=== PATIENT | male | born 1975 | race Caucasian/White ===

== ENCOUNTER 2023-04-07 00:21 | Emergency (ER) | payer MEDICAID ==
[~2023-04-07] VITALS: Ht 172.7 cm; Wt 70.5 kg
[2023-04-07] MEDS ORDERED: LIDOcaine 1% 30ml preserv. free vial SQ STA (01:13)
[2023-04-07] MEDS ORDERED: CEPH-585 PO (02:11)
[2023-04-07 03:00] VITALS: BP 130/78; PULSE 95; RESP 18; TEMP 98.2; O2SAT 98
== END 2023-04-07 03:07 ==
LOC: ER 00:23
DX: S71.112A Laceration without foreign body, left thigh, initial encounter (principal); S81.812A Laceration without foreign body, left lower leg, initial encounter; Z79.2 Long term (current) use of antibiotics; W26.9XXA Contact with unspecified sharp object(s), initial encounter; Y93.89 Activity, other specified; Y92.89 Other specified places as the place of occurrence of the external cause; Y99.8 Other external cause status
CPT/HCPCS: 12002; 73564; 99283